=== PATIENT | female | born 1975 | race Caucasian/White ===

== ENCOUNTER 2024-10-15 11:36 | Inpatient (IN) ==
--- NOTE | 2024-10-15 11:56 | Emergency Department Note ---
Impression & Plan Intractable abdominal pain, Colitis, Intractable nausea and vomiting ED Provider Note NAME: JAYLON ISLAS AGE: 49 SEX: F : 1975 ARRIVES VIA: Ambulance INFORMANT: Patient ED PROVIDER(S): Malcolm Pruitt MD CHIEF COMPLAINT: Abdominal pain PLAN: Disposition: Admit MEDICAL DECISION MAKING: The patient is a pleasant 49-year-old woman with a past medical history of chronic abdominal pain who presents emergency department for evaluation of acute worsening of abdominal pain. The patient presents in the setting of ongoing chronic abdominal pain with fluctuant severity over the past year or more where she was seen in this emergency department on 07/21/2024 for similar symptoms and had CT imaging that demonstrated evidence of enteritis/colitis with possibility of inflammatory bowel disease. The patient has since followed with gastroenterology and had outpatient testing which included an elevated stool calprotectin of 1250. She was scheduled to have a colonoscopy today to further confirm her diagnosis and the patient reports that began to have severe abdominal pain and cramping after taking her second portion of her bowel prep today. On evaluation the patient is uncomfortable but no acute distress, afebrile with stable vital signs. She appears clinically dry. Abdomen is soft and nondistended with mild upper abdominal tenderness without guarding or rebound. WBC 12.5 K with neutrophilia but no left shift, nonspecific. H/H and platelets within normal limits. Comes without metabolic acidosis. Electrolytes LFTs without significant abnormality. Lipase is not elevated. ESR is mildly elevated at 30, nonspecific with CRP undetectable. CT of the pelvis was performed and demonstrates evidence of mild colitis and otherwise no acute abnormalities. Patient was treated with IV hydration, IV famotidine, Zofran and IM dicyclomine. On reassessment the patient was noted to be resting comfortably and was not exhibiting pain. However upon awakening the patient reported that she "felt sick" and had continued pain that is worse than her chronic pain over the past year. Given the patient's worsening symptoms in the setting of attempt at outpatient management patient agrees with plan for admission for further management at this time. Additional treatment provided with IV for hydration, Protonix, Carafate and Solu-Medrol. Case was discussed with Dr. Soares, [facility] hospitalist, who will evaluate the patient for admission. Further management per admitting team. Triage Nursing notes reviewed and agree them. Prior/external medical records reviewed Vital Signs: reviewed Differential diagnosis: Gastroenteritis, food borne illness, infections, appendicitis, diverticulitis, inflammatory bowel disease, obstruction, GI bleed, biliary pathology, volvulus, as well as other pathologies. ER treatment provided: See below. Diagnostics interpreted by me: Cardiac Monitoring: An order for continuous cardiac monitoring was placed and demonstrated normal sinus rhythm, 74bpm, no ectopy. Laboratory studies: See below Imaging studies: See below Consultation(s): Dr. Soares [facility] hospitalist HPI: Per MDM. ROS: See above HPI for pertinent positives & negatives. A total of 10 systems reviewed and were otherwise negative. VITALS:See Below PHYSICAL EXAMINATION: GENERAL: Awake, alert, uncomfortable-appearing, in no distress, BMI 20.3. HENT: Normocephalic, atraumatic. Oropharynx with dry mucous membranes and otherwise unremarkable. EYES: Normal conjunctiva. Sclera non-icteric. NECK: Supple. No nuchal rigidity. FROM. No JVD. RESPIRATORY: Clear to auscultation. CARDIAC: Regular rate, normal rhythm. Extremities warm and well perfused. Pulses equal. ABDOMEN: Soft, non-distended. Mild epigastric tenderness to palpation. No rebound or guarding. MUSCULOSKELETAL: Chest examination reveals no tenderness. The back is symmetrical on inspection without obvious abnormality. There is no CVA tenderness to palpation. No joint edema. LOWER EXTREMITIES: Calves are equal size bilaterally and non-tender. No edema. No discoloration. NEURO: Normal sensorium. No sensory or motor deficits noted. SKIN: No rash or jaundice noted. Malcolm Pruitt MD Past Med/Surg History Problem List (Updated 10/16/24 @ 02:18 by Malcolm Pruitt MD) Intractable abdominal pain (Acute) Colitis (Acute) Intractable nausea and vomiting (Acute) Encounter for pre-operative examination Enteritis Right ear pain Otitis externa of right ear Elevated LFTs Acute sinusitis Counseled about COVID-19 virus infection Encounter for smoking cessation counseling Non-healing skin lesion Routine health maintenance Left medial knee pain (Acute) Fracture of distal fibula (Acute) Medical History Post traumatic stress disorder Anxiety no meds Surgical History History of tooth extraction History of tubal ligation History of gynecologic surgery surgical treatment for Family History Mother Breast cancer Dx late 40's Other Dyslipidemia Heart disease Hypertension No family history of adverse response to anesthesia Social History Smoking Status: Current every day smoker Tobacco Type: Cigarettes Cigarettes Per Day: 5 cig daily>advised *wearing nicotine patch sometimes; Second Hand Exposure: Yes; Do You Dip or Chew Tobacco: No; Tobacco Cessation Education Requested by Patient: No Hx Alcohol Use: Yes Alcohol type: beer Hx Substance Use: No Preferred Language: Scottish Communication Ability: Effective Recovery Room Nurse Required: No Beliefs That Will Affect Care: None marital status: Single Current Living Situation: Alone Current Living Situation Comment: kids grown current occupational status: employed and unemployed 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 How many Children do You have: 3 How many Children do You have Comment: daughter has addiction issues (drugs) - stressful Other Information That Helps Us Care for You: No Feels Safe at Home: Yes Safety Concerns: Feels Safe At This Time Diet Comment: reg diet, rare milk, occ cheese and yogurt, Physical Activity Frequency Comment: walking, gardening. Assistive Devices: None Allergies Allergies Allergy/AdvReac Type Severity Reaction Status Date / Time No Known Allergies Allergy Verified 10/06/24 09:44 Home Meds Home Medications Medication Instructions Recorded Confirmed Vitamin D3 + K2 1 cap PO DAILY 10/06/24 10/15/24 magnesium glycinate 100 mg (as 200 mg PO HS 10/06/24 10/15/24 glycinate) tablet multivitamin 1 tab PO DAILY 10/06/24 10/15/24 nicotine 14 mg/24 hr daily 1 patch transdermal DAILY 10/06/24 10/15/24 transdermal patch Previous Rx's Medication Instructions Recorded peg 3350-sod [id number] See Rx Instructions PO .COMPLEX #2 09/27/24 178.7-7.3-0.5-1.12-0.9 gram oral mL soln (Suflave) Results & Data (ED) Vital Signs Vital Signs - 24 hr 10/15/24 11:37 10/15/24 11:49 10/15/24 11:54 Temperature 36.5 C Temperature Source Oral Pulse Rate 74 58 L 45 L Pulse Rate [Apical] Pulse Rate from SpO2 Sensor 45 L Pulse Rhythm Regular Pulse Rhythm [Apical] Pulse Strength Normal Pulse Strength [Apical] Respiratory Rate 18 14 Respiratory Effort / Characteristics Non-Labored Spontaneous Respiratory Depth Normal Respiratory Pattern Regular Blood Pressure 115/54 L 115/54 L Blood Pressure [Right Arm] Blood Pressure Mean 74 74 Blood Pressure Mean [Right Arm] Blood Pressure Position Lying Blood Pressure Position [Right Arm] Pulse Oximetry 100 100 Oxygen Delivery Method Room Air Room Air Sepsis Recent Fever Within 48 Hours No Sepsis New/Unexplained Change in Mental Status N/A Sepsis Action Taken by Nursing No Action Required EWS Level of Consciousness - Last Result EWS Temperature - Last Result EWS Respiratory Rate - Last Result EWS Oxygen Saturation - Last Result EWS Oxygen in Use - Last Result EWS Score EWS Clinical Risk 10/15/24 12:00 10/15/24 12:04 10/15/24 12:04 Temperature Temperature Source Pulse Rate 42 L Pulse Rate [Apical] 47 L Pulse Rate from SpO2 Sensor 41 L Pulse Rhythm Pulse Rhythm [Apical] Regular Pulse Strength Pulse Strength [Apical] Normal Respiratory Rate 24 16 Respiratory Effort / Characteristics Non-Labored Respiratory Depth Normal Respiratory Pattern Regular Blood Pressure 111/55 L Blood Pressure [Right Arm] 75/44 L Blood Pressure Mean 73 Blood Pressure Mean [Right Arm] 54 Blood Pressure Position Blood Pressure Position [Right Arm] Lying Pulse Oximetry 100 97 Oxygen Delivery Method Room Air Room Air Sepsis Recent Fever Within 48 Hours Sepsis New/Unexplained Change in Mental Status Sepsis Action Taken by Nursing EWS Level of Consciousness - Last Result Spontaneously Alert EWS Temperature - Last Result 36.5 EWS Respiratory Rate - Last Result 18 EWS Oxygen Saturation - Last Result 99 EWS Oxygen in Use - Last Result Yes EWS Score 4 EWS Clinical Risk Moderate Risk 10/15/24 12:30 10/15/24 14:18 10/15/24 15:00 Temperature Temperature Source Pulse Rate 42 L 45 L Pulse Rate [Apical] 45 L Pulse Rate from SpO2 Sensor 41 L Pulse Rhythm Pulse Rhythm [Apical] Pulse Strength Pulse Strength [Apical] Respiratory Rate 12 22 28 H Respiratory Effort / Characteristics Respiratory Depth Respiratory Pattern Blood Pressure 101/54 L 105/55 L Blood Pressure [Right Arm] 100/53 L Blood Pressure Mean 69 71 Blood Pressure Mean [Right Arm] 68 Blood Pressure Position Blood Pressure Position [Right Arm] Pulse Oximetry 100 Oxygen Delivery Method Room Air Sepsis Recent Fever Within 48 Hours Sepsis New/Unexplained Change in Mental Status Sepsis Action Taken by Nursing EWS Level of Consciousness - Last Result EWS Temperature - Last Result EWS Respiratory Rate - Last Result EWS Oxygen Saturation - Last Result EWS Oxygen in Use - Last Result EWS Score EWS Clinical Risk 10/15/24 17:00 10/15/24 17:10 Temperature Temperature Source Pulse Rate 42 L Pulse Rate [Apical] 40 L Pulse Rate from SpO2 Sensor Pulse Rhythm Pulse Rhythm [Apical] Pulse Strength Pulse Strength [Apical] Respiratory Rate 20 Respiratory Effort / Characteristics Respiratory Depth Respiratory Pattern Blood Pressure Blood Pressure [Right Arm] 102/49 L Blood Pressure Mean Blood Pressure Mean [Right Arm] 66 Blood Pressure Position Blood Pressure Position [Right Arm] Pulse Oximetry Oxygen Delivery Method Sepsis Recent Fever Within 48 Hours Sepsis New/Unexplained Change in Mental Status Sepsis Action Taken by Nursing EWS Level of Consciousness - Last Result EWS Temperature - Last Result EWS Respiratory Rate - Last Result EWS Oxygen Saturation - Last Result EWS Oxygen in Use - Last Result EWS Score EWS Clinical Risk Laboratory Data Attestation: I reviewed the patient's lab results. 10/15/24 17:59 10/15/24 22:49 Lab Results 10/15/24 Range/Units 11:51 WBC 12.52 H (4.8-10.8) K/ul RBC 4.50 (4.20-5.40) M/uL Hgb 13.3 (12.0-16.0) g/dl Hct 39.9 (37.0-47.0) % MCV 88.7 (80.0-100.0) fL MCH 29.6 (25.0-34.0) pg MCHC 33.3 (32.0-36.0) g/dL RDW Std Deviation 45.1 (36.4-46.3) fL RDW Coeff of Karl 14.0 (11.5-14.5) % Plt Count 273 (130-400) K/uL MPV 10.1 (9.4-12.4) fL Immature Gran % (Auto) 0.5 % Neut % (Auto) 86.4 % Lymph % (Auto) 8.0 % [place] % (Auto) 4.2 % Eos % (Auto) 0.4 % Baso % (Auto) 0.5 % Neut # (Auto) 10.83 H (1.40-6.50) K/uL Lymph # (Auto) 1.00 L (1.20-3.40) K/uL [place] # (Auto) 0.52 (0.11-0.59) K/uL Eos # (Auto) 0.05 (0.00-0.50) K/uL Baso # (Auto) 0.06 (0.00-0.20) K/uL Immature Gran # (Auto) 0.06 (0.01-0.20) K/uL ESR 31 H (0-30) mm/hr Sodium 141 (136-145) mmol/L Potassium 3.6 (3.5-5.1) mmol/L Chloride 103 (98-107) mmol/L Carbon Dioxide 23 (21-32) mmol/L Anion Gap 15 H (3-11) BUN 12 (6-23) mg/dl Creatinine 0.68 (0.6-1.2) mg/dl Est Cr Clr Drug Dosing 91.2 ml/min eGFR 105.38 BUN/Creatinine Ratio 17.6 (10-20) Glucose 144 H (70-99(Fasting)) mg/dl Calcium 10.3 (8.6-10.3) mg/dl Magnesium 1.9 (1.7-2.4) mg/dl Total Bilirubin 0.8 (0.2-1.0) mg/dl AST 21 (13-39) U/L ALT 15 (7-52) U/L Alkaline Phosphatase 55 (34-104) U/L C-Reactive Protein < 0.50 (0-0.5) mg/dl Total Protein 7.2 (6.0-8.3) gm/dl Albumin 4.5 (3.4-5.0) gm/dl Globulin 2.7 (2.5-4.0) gm/dl Albumin/Globulin Ratio 1.7 (0.9-2) Lipase 5 L (11-82) U/L Administered Medications Parenteral Electrolytes (Plasma-Lyte A Ph 7.4) 1,000 mls @ 150 mls/hr IV .Q6H40M [facility] Stop: 10/16/24 09:11 Last Infusion: 10/16/24 02:06 Dose: 0 mls/hr Documented By: Admin: 10/15/24 20:39 Dose: 150 mls/hr Documented By: NUBIA Sodium Chloride (Nss) 1,000 mls @ 999 mls/hr IV .Q1H1M ONE Stop: 10/16/24 02:52 Last Admin: 10/16/24 02:06 Dose: 999 mls/hr Documented By: NUBIA Nicotine (Nicotine 14 Mg/24 Hr Patch) 1 patch TD QAM NOEL Stop: 11/14/24 19:29 Last Admin: 10/15/24 20:37 Dose: 1 patch Documented By: NUBIA Discontinued Medications Capsaicin (Capsaicin Cr 0.075% 60 Gm Tube) 1 appln EXT NOW STA Stop: 10/15/24 16:56 Last Admin: 10/15/24 17:06 Dose: 1 appln Documented By: BERTIN Dicyclomine HCl (Dicyclomine Hcl 10 Mg/Ml 2 Ml Amp/Vial) 20 mg IM NOW ONE Stop: 10/15/24 13:02 Last Admin: 10/15/24 13:26 Dose: 20 mg Documented By: [facility] Diphenhydramine HCl (Diphenhydramine 50 Mg/Ml Vial) 25 mg IV NOW STA Stop: 10/16/24 00:06 Last Admin: 10/16/24 00:19 Dose: 25 mg Documented By: [facility] Sodium Chloride (Nss) 1,000 mls @ 999 mls/hr IV .Q1H1M ONE Stop: 10/15/24 13:02 Last Infusion: 10/15/24 16:25 Dose: Infused Documented By: Admin: 10/15/24 13:23 Dose: 999 mls/hr Documented By: [facility] [place] Famotidine (Pepcid 20mg Iv Push) 20 mg in 5 mls @ 2.5 mls/min IV NOW STA Stop: 10/15/24 13:02 Last Admin: 10/15/24 13:23 Dose: 2.5 mls/min Documented By: [facility] [place] Sodium Chloride (Nss) 1,000 mls @ 999 mls/hr IV .Q1H1M ONE Stop: 10/15/24 16:19 Last Infusion: 10/15/24 17:56 Dose: Infused Documented By: Admin: 10/15/24 16:47 Dose: 999 mls/hr Documented By: BERTIN Acetaminophen (Ofirmev) 1,000 mg in 100 mls @ 400 mls/hr IV NOW STA Stop: 10/15/24 15:40 Last Infusion: 10/15/24 16:49 Dose: Infused Documented By: Admin: 10/15/24 16:14 Dose: 400 mls/hr Documented By: VÍCTOR Pantoprazole Sodium (Protonix) 40 mg in 10 mls @ 5 mls/min IV NOW ONE Stop: 10/15/24 15:21 Last Admin: 10/15/24 16:14 Dose: 5 mls/min Documented By: VÍCTOR Parenteral Electrolytes (Plasma-Lyte A Ph 7.4) 1,000 mls @ 999 mls/hr IV .Q1H1M ONE Stop: 10/15/24 18:50 Last Infusion: 10/15/24 20:39 Dose: Infused Documented By: Admin: 10/15/24 17:55 Dose: 999 mls/hr Documented By: BERTIN Ioversol (Optiray 320 100ml) 93 ml IV ONCE ONE Stop: 10/15/24 13:16 Last Admin: 10/15/24 13:16 Dose: 93 ml Documented By: GINGER Methylprednisolone (Methylprednisolone 125 Mg/2 Ml Vial) 60 mg IV NOW STA Stop: 10/15/24 15:20 Last Admin: 10/15/24 16:14 Dose: 60 mg Documented By: VÍCTOR Metoclopramide HCl (Metoclopramide Hcl Inj 5 Mg/Ml 2 Ml Vial) 5 mg IV ONE ONE Stop: 10/15/24 17:22 Last Admin: 10/15/24 17:35 Dose: 5 mg Documented By: BERTIN Ondansetron HCl (Ondansetron Inj 2 Mg/Ml 2 Ml Vial) 4 mg IV NOW STA Stop: 10/15/24 13:02 Last Admin: 10/15/24 13:24 Dose: 4 mg Documented By: TRACEY Sucralfate (Sucralfate 1 Gm/10 Ml Udc) 1 gm PO NOW STA Stop: 10/15/24 15:20 Last Admin: 10/15/24 16:14 Dose: 1 gm Documented By: VÍCTOR Imaging Data Radiologist's Impression: Abdomen/Pelvis CT 10/15/24 13:[address] WITH IV CONTRAST CT DOSE: 770.8 mGy.cm HISTORY: abd pain after bowel prep, ?IBD TECHNIQUE: Multiaxial CT images of the abdomen and pelvis were performed following the IV administration of 90 cc of Optiray, A dose lowering technique was utilized adhering to the principles of ALARA. COMPARISON STUDY: 07/21/2024 FINDINGS: ABDOMEN: Stable tiny cyst anterior right hepatic lobe. Otherwise the liver, gallbladder, spleen, pancreas, and adrenal glands are unremarkable. Kidneys show no hydronephrosis or calculi. No abdominal aortic aneurysm. Pelvis: There are tubal ligation clips. Uterus and adnexa are otherwise grossly unremarkable. Urinary bladder is nondistended. There is mild wall thickening diffusely about the colon. No other bowel inflammation or obstruction seen. Normal appendix. No free fluid, free air, or abscess. No enlarged adenopathy. Osseous structures: There is mild lumbar degenerative disc disease. IMPRESSION: Mild colitis without obstruction or perforation. ACT 112: Negative or not required by law. The above report was generated using voice recognition software. It may contain grammatical, syntax or spelling errors. Electronically signed by: Arvin Tony M.D. 10/15/2024 1:41 PM Discharge Plan Visit Data Chief Complaint: Abdominal Pain ED Provider: Malcolm Pruitt Discharge Problem: Intractable abdominal pain, Colitis, Intractable nausea and vomiting Patient Disposition: Admitted As Inpatient Condition: Good Discharge Instructions Interventions: ED Discharge Assessment Last Done: 10/15/24 18:49
[2024-10-15 12:16] LABS: Basophils # (auto) 0.06 K/uL (0.00-0.20); Basophils % (auto) 0.5 %; Eosinophils # (auto) 0.05 K/uL (0.00-0.50); Eosinophils % (auto) 0.4 %; Hematocrit (blood only) 39.9 % (37.0-47.0); Hemoglobin 13.3 g/dl (12.0-16.0); Immature Granulocytes # (auto) 0.06 K/uL (0.01-0.20); Immature Granulocytes % (auto) 0.5 %; Mean Corpuscular Hemoglobin 29.6 pg (25.0-34.0); Mean Corpuscular Hgb Conc 33.3 g/dL (32.0-36.0); Mean Corpuscular Volume 88.7 fL (80.0-100.0); Mean Platelet Volume 10.1 fL (9.4-12.4); Monocytes # (auto) 0.52 K/uL (0.11-0.59); Monocytes % (auto) 4.2 %; Neutrophils # (auto) 10.83 K/uL (1.40-6.50); Neutrophils % (auto) 86.4 %; Platelet Count 273 K/uL (130-400); RDW Standard Deviation 45.1 fL (36.4-46.3); White Blood Count 12.52 K/ul (4.8-10.8)
[2024-10-15 12:45] LABS: Alanine Aminotransferase 15 U/L (7-52); Albumin Globulin Ratio 1.7 (0.9-2); Albumin Level 4.5 gm/dl (3.4-5.0); Alkaline Phosphatase 55 U/L (34-104); Anion Gap 15 (3-11); Aspartate Aminotransferase 21 U/L (13-39); BUN Creatinine Ratio 17.6 (10-20); Bilirubin,Total 0.8 mg/dl (0.2-1.0); Blood Urea Nitrogen 12 mg/dl (6-23); C Reactive Protein < 0.50 mg/dl (0-0.5); Calcium 10.3 mg/dl (8.6-10.3); Carbon Dioxide 23 mmol/L (21-32); Chloride 103 mmol/L (98-107); Creatinine Clr Calc Pharmacy 91.2 ml/min; Globulin 2.7 gm/dl (2.5-4.0); Glucose 144 mg/dl (70-99(Fasting)); Lipase 5 U/L (11-82); Magnesium 1.9 mg/dl (1.7-2.4); Potassium 3.6 mmol/L (3.5-5.1); Sodium 141 mmol/L (136-145); Total Protein 7.2 gm/dl (6.0-8.3)
--- NOTE | 2024-10-15 13:42 | CT Scan Report ---
ABDOMEN AND PELVIS CT WITH IV CONTRAST CT DOSE: 770.8 mGy.cm HISTORY: abd pain after bowel prep, ?IBD TECHNIQUE: Multiaxial CT images of the abdomen and pelvis were performed following the IV administrat ion of 90 cc of Optiray, A dose lowering technique was utilized adhering to the principles of ALARA. COMPARISON STUDY: 07/21/2024 FINDINGS: ABDOMEN: Stable tiny cyst anterior right hepatic lobe. Otherwise the liver, gallbladder, spleen, panc reas, and adrenal glands are unremarkable. Kidneys show no hydronephrosis or calculi. No abdominal ao rtic aneurysm. Pelvis: There are tubal ligation clips. Uterus and adnexa are otherwise grossly unremarkable. Urinary bladder is nondistended. There is mild wall thickening diffusely about the colon. No other bowel inf lammation or obstruction seen. Normal appendix. No free fluid, free air, or abscess. No enlarged danny opathy. Osseous structures: There is mild lumbar degenerative disc disease. IMPRESSION: Mild colitis without obstruction or perforation. ACT 112: Negative or not required by law. The above report was generated using voice recognition software. It may contain grammatical, syntax o r spelling errors. Electronically signed by: Arvin Tony M.D. 10/15/2024 1:41 PM
--- NOTE | 2024-10-15 16:33 | History & Physical Report ---
Date of Service October 15, 2024 Assessment & Plan (1) Intractable nausea and vomiting: (2) Colitis: (3) Hypovolemic shock: (4) Bradycardia: Plan This is a 49-year-old female presented on 10/15 for intractable upper abdominal pain. Coming in for pain control and colitis. # Intractable abdominal pain, nausea, and vomiting | suspected IBD/inflammatory colitis Leukocytosis of 12.52 with a neutrophil predominance A/P CT with contrast revealed mild colitis without obstruction or perforation Patient previously had a fecal calprotectin positive (09/20/24) and was set to have a colonoscopy today on 10/15 However, she did not tolerate the bowel prep, began vomiting, and this exacerbated her abdominal symptoms PCR stool/C. difficile ordered, pending CRP WNL Lipase WNL Multimodal pain regimen: IM Bentyl 20 mg x 1 IV Solu-Medrol 60 mg IV x 1 IV Reglan 5 mg IV x 1 IV acetaminophen PRN IV Protonix daily IV famotidine daily IV antiemetics with Zofran and Compazine PRN; QTc okay at 459 Capsaicin cream application PRN Bowel rest / n.p.o. for now NSS 2000 mL IV x 1 on arrival Additional fluid boluses as needed for significant volume loss Continue IVF maintenance with Plasma-Lyte at 110 mL/hr x 2 L (add on additional fluids as needed) Gastroenterology consult appreciated Trend CRP #Marked sinus bradycardia Bradycardic at 42-45 bpm on arrival Continuous telemetry monitoring #Current everyday tobacco cigarette smoker Nicotine patch PRN #Hematochezia | coffee-ground emesis Reported by patient on arrival Hgb okay at 13.3 on arrival Spotcheck Hgb ordered, pending Protonix 40 mg IV BID for now Trend H&H Disposition: Admit to [facility] telemetry VTE PPx: SCDs History of Present Illness Chief Complaint: Abdominal Pain, intractable nausea and vomiting Primary Care Provider: Leslee Vazquez MD Mrs. Crews is a 49-year-old female with PMH of enteritis. She presented via EMS on 10/15 for intractable nausea, vomiting, and upper abdominal pain. She has been experiencing ongoing bowel issues over the past 2 years. She recently had a fecal calprotectin test taken outpatient on 09/20, which came back positive. She was scheduled to have a colonoscopy today, and was finishing her bowel prep around 5 AM this morning, when she started vomiting. She believes the bowel prep exacerbated her pain, and since that time she has had a constant upper abdominal pain. She rates the pain 10/10 at worst, and 8/10 at present; ch aracterizes it as "sharp". She has had an back pain in the past, but no radiation to the back at present. The pain is constant, but there are waves of intense pain as well. Additionally, she has been having "coffee ground" emesis. Additional symptoms include blood in her stool and cold sweats. No prior history of Crohn's or ulcerative colitis to her knowledge. Patient is a current everyday tobacco cigarette smoker; 10 cigarettes/day. She would like a nicotine patch while in the hospital. She denies any recent alcohol use, but does endorse drinking some beer last weekend. NKDA. Patient is hypotensive at 105/55 and bradycardic at 45 bpm at time of admission. ED course: Protonix 40 mg IV Famotidine 20 mg IV Bentyl 20 mg IM Acetaminophen 1000 mg IV Sucralfate 1 g p.o. Solu-Medrol 60 mg IV NSS 1000 mL IV x 2 Zofran 4 mg IV ROS: Patient endorses intractable epigastric/chest pain, body aches, back pain, nausea, vomiting, constipation, blood in stool, and cold sweats. Patient denies fever, chills, SOB, BEY, pleuritic CP, cough, or change in urinary habits. Allergies Allergy/AdvReac Type Severity Reaction Status Date / Time No Known Allergies Allergy Verified 10/06/24 09:44 Home Medications Medication Instructions Recorded Confirmed Type peg 3350-sod [id number] See Rx Instructions PO .COMPLEX #2 09/27/24 10/15/24 Rx 178.7-7.3-0.5-1.12-0.9 gram oral mL soln (Suflave) Vitamin D3 + K2 1 cap PO DAILY 10/06/24 10/15/24 History magnesium glycinate 100 mg (as 200 mg PO HS 10/06/24 10/15/24 History glycinate) tablet multivitamin 1 tab PO DAILY 10/06/24 10/15/24 History nicotine 14 mg/24 hr daily 1 patch transdermal DAILY 10/06/24 10/15/24 History transdermal patch Past Med/Surg History Problem List (Updated 10/17/24 @ 09:28 by Eran Soares MD) Bradycardia Hypovolemic shock Intractable abdominal pain (Acute) Colitis (Acute) Intractable nausea and vomiting (Acute) Encounter for pre-operative examination Enteritis Right ear pain Otitis externa of right ear Elevated LFTs Acute sinusitis Counseled about COVID-19 virus infection Encounter for smoking cessation counseling Non-healing skin lesion Routine health maintenance Left medial knee pain (Acute) Fracture of distal fibula (Acute) Medical History Post traumatic stress disorder Anxiety no meds Surgical History History of tooth extraction History of tubal ligation History of gynecologic surgery surgical treatment for Family History Mother Breast cancer Dx late 40's Other Dyslipidemia Heart disease Hypertension No family history of adverse response to anesthesia Social History Smoking Status: Current every day smoker Tobacco Type: Cigarettes Cigarettes Per Day: 5 cig daily>advised *wearing nicotine patch sometimes; Second Hand Exposure: Yes; Do You Dip or Chew Tobacco: No; Tobacco Cessation Education Requested by Patient: No Hx Alcohol Use: Yes Alcohol type: beer Hx Substance Use: No Preferred Language: Hungarian Communication Ability: Effective Supervising Floorperson Required: No Beliefs That Will Affect Care: None marital status: Single Current Living Situation: Alone Current Living Situation Comment: kids grown current occupational status: employed and unemployed 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 How many Children do You have: 3 How many Children do You have Comment: daughter has addiction issues (drugs) - stressful Other Information That Helps Us Care for You: No Feels Safe at Home: Yes Safety Concerns: Feels Safe At This Time Diet Comment: reg diet, rare milk, occ cheese and yogurt, Physical Activity Frequency Comment: walking, gardening. Assistive Devices: None Review of Systems Review of Systems: See HPI above Physical Exam Physical Exam: General: Acute physical distress secondary to upper abdominal pain; vomiting in the room; toxic appearing; family at bedside; SpO2 100% on RA HEENT: normocephalic, atraumatic; no scleral icterus; PERRLA; vision and hearing grossly intact Neck: supple; trachea midline Skin: Non-diaphoretic; warm, dry without signs of tenting; no cyanosis; no rashes, bruising, lesions, or erythema noted CV: chest wall NTP; RRR; S1/S2 normal; no murmurs/rubs/gallops; pulses intact and symmetric at radial, DP, and PT Lungs: no acute respiratory distress; symmetrical chest wall expansion; clear breath sounds across all lung preston w/o adventitious sounds; no wheezing ABD: Soft; diffusely TTP in the epigastric region; BS present; no reboun d/guarding; no bruising or rashes on the abdomen, flanks, or back Back: Upper spine NTP; lower spine NTP; negative CVA tenderness bilaterally MSK: no tics or fasciculations; no edema noted in the LEs b/l, nonerythematous Neuro: A&Ox3; normal mood and affect; fluent speech; no focal deficits; sensation intact and symmetric in the lower extremities bilaterally Results & Data Results & Data Vital Signs (Past 12 Hours) Vital Signs Temp Pulse Resp BP Pulse Ox O2 Del Method 10/15/24 14:18 45 L 22 105/55 L 10/15/24 12:30 42 L 12 101/54 L 100 Room Air 10/15/24 12:00 42 L 24 111/55 L 100 Room Air 10/15/24 11:54 45 L 14 115/54 L 100 Room Air 10/15/24 11:49 58 L 10/15/24 11:37 36.5 C 74 18 115/54 L 100 Room Air Laboratory Results Abnormal lab results 10/15/24 Range/Units 11:51 WBC 12.52 H (4.8-10.8) K/ul Neut # (Auto) 10.83 H (1.40-6.50) K/uL Lymph # (Auto) 1.00 L (1.20-3.40) K/uL ESR 31 H (0-30) mm/hr Anion Gap 15 H (3-11) Glucose 144 H (70-99(Fasting)) mg/dl Lipase 5 L (11-82) U/L Diagnostic Findings Abdomen/Pelvis CT 10/15/24 13:[address] WITH IV CONTRAST CT DOSE: 770.8 mGy.cm HISTORY: abd pain after bowel prep, ?IBD TECHNIQUE: Multiaxial CT images of the abdomen and pelvis were performed following the IV administration of 90 cc of Optiray, A dose lowering technique was utilized adhering to the principles of ALARA. COMPARISON STUDY: 07/21/2024 FINDINGS: ABDOMEN: Stable tiny cyst anterior right hepatic lobe. Otherwise the liver, gallbladder, spleen, pancreas, and adrenal glands are unremarkable. Kidneys show no hydronephrosis or calculi. No abdominal aortic aneurysm. Pelvis: There are tubal ligation clips. Uterus and adnexa are otherwise grossly unremarkable. Urinary bladder is nondistended. There is mild wall thickening diffusely about the colon. No other bowel inflammation or obstruction seen. Normal appendix. No free fluid, free air, or abscess. No enlarged adenopathy. Osseous structures: There is mild lumbar degenerative disc disease. IMPRESSION: Mild colitis without obstruction or perforation. ACT 112: Negative or not required by law. The above report was generated using voice recognition software. It may contain grammatical, syntax or spelling errors. Electronically signed by: Arvin Tony M.D. 10/15/2024 1:41 PM ECG Additional Comments: ECG revealed marked sinus bradycardia at 44 bpm; QTc 459 Code Status & VTE Plan Code Status Full code VTE Prophylaxis Plan VTE Prophylaxis will be ordered: Yes Supervising Physician Co-Signing Physician Notes Attending Attestation & Admit Note: Pt seen/examined, chart reviewed, care plan d/w MIRIAM Lewis. I agree w/ the cameron components of his admit documentation with the following addition - -hypovolemic shock 2nd to prolific vomiting and multiple stools from bowel prep 49yo female with chronic, multiple GI complaints and 06/2024 imaging with diffuse colitis. Prior stool calprotectin also elevated. Concern for IBD. Underwent colon prep starting yesterday - completed 05/27 as directed. This AM was starting 2nd half then developed profuse nausea/vomiting/abd pain. Came to [facility] due to refractory GI symptoms. Shortly after arrival BP was 75/44. Received numerous meds in ER (as listed in Joshua's note) for her nausea/vomiting/abd pain. Despite the above her symptoms persisted. Her hypotension also persisted necessitating the use of multiple IV fluid boluses. Patient states she had no wheezing, angioedema, tongue swelling, hives. PMH/PSH/allergies/meds/sochx - reviewed vitals - hypotension, bradycardia (etiology?), no fever gen - tired-appearing, awake, alert mouth - MM dry heart - bradycardic, s1 s2, no murmur lungs - CTA b/l abd - soft, ND, BS+, tender epigastric region, no HSM ext - despite the low BP she has palpable pulses in feet b/l, 2+; no edema labs reviewed imaging reviewed including CT a/p (possible mild colitis) EKG - sinus tesha, no ST changes, no AV block A/P: 1. concern for IBD 2. hypovolemic shock 3. intractable nausea/vomiting/abd pain in setting of colon prep 4. bradycardia -cont IV fluid resuscitation for #2 -check a cortisol level -serial electrolytes -NPO for now until emesis stops -H2 darin/PPI/anti-emetics -GI consult -etiology of bradycardia uncertain; vagal response to GI symptoms??; bradycardia NOT c/w anaphylaxis to colon prep material; check TSH; check Lyme screen -consider echo if bradycardia persists Eran Soares MD PG Care Time/CCT Total # of Minutes Spent Total Time Spent with Patient: Total time spent is greater than 50% in coordination of care (as documented) at patient's floor/unit and/or counseling patient: [place] [address] INT INP/OBS CARE 3/75MIN Patient Type Established Medical Decision Making High Complexity Diagnoses Intractable nausea and vomiting R11.2 Colitis K52.9 Hypovolemic shock R57.1 Bradycardia R00.1
[2024-10-15 18:18] LABS: Hematocrit (blood only) 30.4 % (37.0-47.0); Hemoglobin 9.9 g/dl (12.0-16.0)
[2024-10-15 23:23] LABS: Calcium 8.8 mg/dl (8.6-10.3); Creatinine Clr Calc Pharmacy 119.7 ml/min; Potassium 3.7 mmol/L (3.5-5.1)
[2024-10-16 03:59] LABS: Hematocrit (blood only) 32.3 % (37.0-47.0); Hemoglobin 10.5 g/dl (12.0-16.0)
[2024-10-16 04:00] LABS: Basophils # (auto) 0.01 K/uL (0.00-0.20); Basophils % (auto) 0.1 %; Eosinophils # (auto) 0.01 K/uL (0.00-0.50); Eosinophils % (auto) 0.1 %; Hematocrit (blood only) 31.7 % (37.0-47.0); Hemoglobin 10.2 g/dl (12.0-16.0); Immature Granulocytes # (auto) 0.02 K/uL (0.01-0.20); Immature Granulocytes % (auto) 0.3 %; Lymphocytes # (auto) 1.11 K/uL (1.20-3.40); Lymphocytes % (auto) 16.1 %; Mean Corpuscular Hemoglobin 29.6 pg (25.0-34.0); Mean Corpuscular Hgb Conc 32.2 g/dL (32.0-36.0); Mean Corpuscular Volume 91.9 fL (80.0-100.0); Mean Platelet Volume 10.1 fL (9.4-12.4); Monocytes # (auto) 0.37 K/uL (0.11-0.59); Monocytes % (auto) 5.4 %; Neutrophils # (auto) 5.36 K/uL (1.40-6.50); Platelet Count 223 K/uL (130-400); RDW Coefficient of Variation 14.5 % (11.5-14.5); RDW Standard Deviation 48.9 fL (36.4-46.3); Red Blood Count 3.45 M/uL (4.20-5.40); White Blood Count 6.88 K/ul (4.8-10.8)
[2024-10-16 04:15] LABS: Anion Gap 8 (3-11); BUN Creatinine Ratio 15.7 (10-20); Blood Urea Nitrogen 8 mg/dl (6-23); C Reactive Protein < 0.50 mg/dl (0-0.5); Calcium 8.4 mg/dl (8.6-10.3); Carbon Dioxide 22 mmol/L (21-32); Chloride 111 mmol/L (98-107); Creatinine Clr Calc Pharmacy 124.4 ml/min; Glucose 109 mg/dl (70-99(Fasting)); Magnesium 1.9 mg/dl (1.7-2.4); Potassium 3.5 mmol/L (3.5-5.1); Sodium 141 mmol/L (136-145)
[2024-10-16 04:31] LABS: Thyroid Stimulating Hormone 0.333 uIu/ml (0.300-4.500)
[2024-10-16 07:29] LABS: Appearance Urine Clear (Clear); Color Urine Yellow; Protein Urine Trace (Negative); Specific Gravity Urine 1.041 (1.000-1.030); pH Urine 5.5 (4.5-7.5)
[2024-10-16 07:30] LABS: Bacteria Urine Automated 1+ (None Seen); Bilirubin Urine Negative (Negative); Blood Urine Negative (Negative); Cast Urine Automated 0-2 /lpf (0-2); Glucose Urine UA Negative (Negative); Ketones Urine 2+ (Negative); Leukocyte Esterase Urine Negative (Negative); Nitrite Urine Negative (Negative); RBC Urine Automated 0-2 /hpf (0-2); Urobilinogen Urine Negative (Negative)
[2024-10-16 07:48] LABS: Pregnancy Test, Urine Negative (Negative)
[2024-10-16 07:53] LABS: Amphetamines+Metham, Urine Neg (Neg); Barbiturates, Urine Neg (Neg); Benzodiazepine, Urine Neg (Neg); Cocaine, Urine Neg (Neg); Fentanyl, Urine Neg (Neg); MDMA (Ecstacy), Urine Neg (Neg); Marijuana, Urine Pos (Neg); Methadone, Urine Neg (Neg); Opiate, Urine Neg (Neg); Phencyclidine, Urine Neg (Neg)
--- NOTE | 2024-10-16 11:15 | Gastrointestinal Consultation ---
Date of Consultation October 16, 2024 Assessment & Plan (1) Intractable abdominal pain: Pleasant woman with significant abdominal pain that started while taking prep for colonoscopy to evaluate for colitis on CT with elevated fecal calprotectin. Interesting her c-reactive protein here is normal. She had a pretty violent reaction and the numbness and inability to use her extremities is somewhat concerning. I suppose she could have had a vagal reaction and that is why she had distal numbness and tingling. It does seem likely that she has IBD but CT does not suggest any inflammation in an area where she could have partial obstruction. She does need evaluation with colonoscopy but she isn't ready to try the prep again yet. I will let her recover today and revisit the idea tomorrow. I would maintain her on liquids for now to make prep easier. I did offer the idea of going home and scheduling this as an outpatient but she isn't comfortable doing the prep without someone present. History of Present Illness Reason for Consultation: abdominal pain Attending Physician: Eran Soares MD History of Present Illness 49 year old female being evaluated as an outpatient for abdominal pain and "colitis on CT". She had a fecal calprotectin >1000 on recent outpatient testing and was scheduled for colonoscopy yesterday. She underwent prep for procedure and while doing the second dose or prep developed "severe" abdominal pain and said her extremities became "numb". She reports not being able to use her extremities to call anybody. She says she was writhing on the bed yelling she was in so much pain. She came to the ER and had to forego the colonoscopic evaluation. She was initially diagnosed with "colits" on CT earlier this year and had seen someone at an urgent care center who put her on prednisone. Off prednisone she says she has been developing symptoms more recently. She admits to probably a 25 pound weight loss. Allergies Allergy/AdvReac Type Severity Reaction Status Date / Time No Known Allergies Allergy Verified 10/06/24 09:44 Home Medications Medication Instructions Recorded Confirmed Type peg 3350-sod sulf,[id number] See Rx Instructions PO .COMPLEX #2 09/27/24 10/15/24 Rx 178.7-7.3-0.5-1.12-0.9 gram oral mL soln (Suflave) Vitamin D3 + K2 1 cap PO DAILY 10/06/24 10/15/24 History magnesium glycinate 100 mg (as 200 mg PO HS 10/06/24 10/15/24 History glycinate) tablet multivitamin 1 tab PO DAILY 10/06/24 10/15/24 History nicotine 14 mg/24 hr daily 1 patch transdermal DAILY 10/06/24 10/15/24 History transdermal patch Patient History Medical History Post traumatic stress disorder Anxiety no meds Surgical History History of tooth extraction History of tubal ligation History of gynecologic surgery surgical treatment for Family History Mother Breast cancer Dx late 40's Other Dyslipidemia Heart disease Hypertension No family history of adverse response to anesthesia Social History Smoking Status: Current every day smoker Tobacco Type: Cigarettes Cigarettes Per Day: 5 cig daily>advised *wearing nicotine patch sometimes; Second Hand Exposure: Yes; Do You Dip or Chew Tobacco: No; Tobacco Cessation Education Requested by Patient: No Hx Alcohol Use: Yes Alcohol type: beer Hx Substance Use: No Preferred Language: Australian Communication Ability: Effective Application Internship Required: No Beliefs That Will Affect Care: None marital status: Single Current Living Situation: Alone Current Living Situation Comment: kids grown current occupational status: employed and unemployed 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 How many Children do You have: 3 How many Children do You have Comment: daughter has addiction issues (drugs) - stressful Other Information That Helps Us Care for You: No Feels Safe at Home: Yes Safety Concerns: Feels Safe At This Time Diet Comment: reg diet, rare milk, occ cheese and yogurt, Physical Activity Frequency Comment: walking, gardening. Assistive Devices: None Review of Systems Review of Systems: All systems reviewed & are unremarkable except as noted in HPI & below Physical Exam Physical Exam: Pleasant, looks well Constitutional: WD/WN, vitals as above Neck: trachea midline, no thyromegaly Respiratory: normal respiratory effort, lungs clear to auscultation Cardiovascular: RRR, no murmur, no edema Gastrointestinal (Abdomen): normal bowel sounds, soft, nontender, no hepatosplenomegaly Musculoskeletal: Extremities: extremities normal to inspection Results & Data Vital Signs (Past 12 Hours) Vital Signs Temp Pulse Resp BP BP Pulse Ox O2 Del Method 10/16/24 07:27 36.9 C 42 L 18 113/69 99 Room Air 10/16/24 04:36 91/54 L 10/16/24 03:42 79/45 L 83/49 L 10/16/24 03:10 92/46 L 10/16/24 02:37 37.0 C 46 L 18 78/46 L 96 Room Air 10/16/24 02:31 55 L 16 94/60 L 96 Room Air 10/16/24 01:47 52 L 16 87/40 L 97 Room Air 10/16/24 00:55 57 L 85/41 L 10/15/24 23:56 57 L 16 87/54 L 97 Laboratory Results 10/16/24 10/16/24 10/16/24 Range/Units 07:16 07:10 03:25 WBC (4.8-10.8) K/ul RBC (4.20-5.40) M/uL Hgb (12.0-16.0) g/dl Hct 32.3 L (37.0-47.0) % MCV 91.9 (80.0-100.0) fL MCH 29.6 (25.0-34.0) pg MCHC 32.2 (32.0-36.0) g/dL RDW Std Deviation 48.9 H (36.4-46.3) fL RDW Coeff of Karl 14.5 (11.5-14.5) % Plt Count 223 (130-400) K/uL MPV 10.1 (9.4-12.4) fL Immature Gran % (Auto) 0.3 % Neut % (Auto) 78.0 % Lymph % (Auto) 16.1 % Bonner % (Auto) 5.4 % Eos % (Auto) 0.1 % Baso % (Auto) 0.1 % Neut # (Auto) 5.36 (1.40-6.50) K/uL Lymph # (Auto) 1.11 L (1.20-3.40) K/uL Bonner # (Auto) 0.37 (0.11-0.59) K/uL Eos # (Auto) 0.01 (0.00-0.50) K/uL Baso # (Auto) 0.01 (0.00-0.20) K/uL Immature Gran # (Auto) 0.02 (0.01-0.20) K/uL ESR (0-30) mm/hr Sodium 141 (136-145) mmol/L Potassium 3.5 (3.5-5.1) mmol/L Chloride 111 H (98-107) mmol/L Carbon Dioxide 22 (21-32) mmol/L Anion Gap 8 (3-11) BUN 8 (6-23) mg/dl Creatinine 0.51 L (0.6-1.2) mg/dl Est Cr Clr Drug Dosing 124.4 ml/min eGFR 112.94 BUN/Creatinine Ratio 15.7 (10-20) Glucose 109 H (70-99(Fasting)) mg/dl Lactate 1.0 (0.4-2.0) mmol/L Calcium 8.4 L (8.6-10.3) mg/dl Magnesium 1.9 (1.7-2.4) mg/dl Total Bilirubin (0.2-1.0) mg/dl AST (13-39) U/L ALT (7-52) U/L Alkaline Phosphatase (34-104) U/L Troponin I High Sens (0-14) pg/ml C-Reactive Protein < 0.50 (0-0.5) mg/dl Total Protein (6.0-8.3) gm/dl Albumin (3.4-5.0) gm/dl Globulin (2.5-4.0) gm/dl Albumin/Globulin Ratio (0.9-2) Lipase (11-82) U/L TSH 0.333 (0.300-4.500) uIu/ml Random Cortisol mcg/dl Urine Color Yellow Urine Appearance Clear (Clear) Urine pH 5.5 (4.5-7.5) Ur Specific Continental 1.041 H (1.000-1.030) Urine Protein Trace H (Negative) Urine Glucose (UA) Negative (Negative) Urine Ketones 2+ H (Negative) Urine Blood Negative (Negative) Urine Nitrite Negative (Negative) Urine Bilirubin Negative (Negative) Urine Urobilinogen Negative (Negative) Ur Leukocyte Esterase Negative (Negative) Urine WBC (Auto) 6-10 H (0-5) /hpf Urine RBC (Auto) 0-2 (0-2) /hpf U Hyaline Cast (Auto) 0-2 (0-2) /lpf U Epithel Cells (Auto) 3-5 H (0-2) /hpf Urine Bacteria (Auto) 1+ H (None Seen) Urine Test Negative (Negative) Urine Comment Urine Opiates Screen Neg (Neg) Ur Methadone, Qual Neg (Neg) Urine Fentanyl Screen Neg (Neg) Urine Barbiturates Neg (Neg) Ur Phencyclidine (PCP) Neg (Neg) U Amphetamin/Meth Scrn Neg (Neg) MDMA (Ecstasy) Screen Neg (Neg) U Benzodiazepines Scrn Neg (Neg) Ur Cocaine Metabolite Neg (Neg) U Marijuana (THC) Screen Pos H (Neg) U Marijuana THC Carboxy Pending Drug Screen Comment Pending Lyme Disease Screen (Negative) 10/16/24 10/16/24 10/15/24 Range/Units 03:25 03:25 22:49 WBC 6.88 (4.8-10.8) K/ul RBC 3.45 L (4.20-5.40) M/uL Hgb 10.5 L 10.2 L (12.0-16.0) g/dl Hct 31.7 L (37.0-47.0) % MCV (80.0-100.0) fL MCH (25.0-34.0) pg MCHC (32.0-36.0) g/dL RDW Std Deviation (36.4-46.3) fL RDW Coeff of Karl (11.5-14.5) % Plt Count (130-400) K/uL MPV (9.4-12.4) fL Immature Gran % (Auto) % Neut % (Auto) % Lymph % (Auto) % Bonner % (Auto) % Eos % (Auto) % Baso % (Auto) % Neut # (Auto) (1.40-6.50) K/uL Lymph # (Auto) (1.20-3.40) K/uL Bonner # (Auto) (0.11-0.59) K/uL Eos # (Auto) (0.00-0.50) K/uL Baso # (Auto) (0.00-0.20) K/uL Immature Gran # (Auto) (0.01-0.20) K/uL ESR (0-30) mm/hr Sodium 140 (136-145) mmol/L Potassium 3.7 (3.5-5.1) mmol/L Chloride 108 H (98-107) mmol/L Carbon Dioxide 24 (21-32) mmol/L Anion Gap 8 (3-11) BUN 9 (6-23) mg/dl Creatinine 0.53 L (0.6-1.2) mg/dl Est Cr Clr Drug Dosing 119.7 ml/min eGFR 111.90 BUN/Creatinine Ratio 17.0 (10-20) Glucose 128 H (70-99(Fasting)) mg/dl Lactate 0.9 (0.4-2.0) mmol/L Calcium 8.8 (8.6-10.3) mg/dl Magnesium (1.7-2.4) mg/dl Total Bilirubin (0.2-1.0) mg/dl AST (13-39) U/L ALT (7-52) U/L Alkaline Phosphatase (34-104) U/L Troponin I High Sens (0-14) pg/ml C-Reactive Protein (0-0.5) mg/dl Total Protein (6.0-8.3) gm/dl Albumin (3.4-5.0) gm/dl Globulin (2.5-4.0) gm/dl Albumin/Globulin Ratio (0.9-2) Lipase (11-82) U/L TSH (0.300-4.500) uIu/ml Random Cortisol 16.70 mcg/dl Urine Color Urine Appearance (Clear) Urine pH (4.5-7.5) Ur Specific Continental (1.000-1.030) Urine Protein (Negative) Urine Glucose (UA) (Negative) Urine Ketones (Negative) Urine Blood (Negative) Urine Nitrite (Negative) Urine Bilirubin (Negative) Urine Urobilinogen (Negative) Ur Leukocyte Esterase (Negative) Urine WBC (Auto) (0-5) /hpf Urine RBC (Auto) (0-2) /hpf U Hyaline Cast (Auto) (0-2) /lpf U Epithel Cells (Auto) (0-2) /hpf Urine Bacteria (Auto) (None Seen) Urine Test (Negative) Urine Comment Urine Opiates Screen (Neg) Ur Methadone, Qual (Neg) Urine Fentanyl Screen (Neg) Urine Barbiturates (Neg) Ur Phencyclidine (PCP) (Neg) U Amphetamin/Meth Scrn (Neg) MDMA (Ecstasy) Screen (Neg) U Benzodiazepines Scrn (Neg) Ur Cocaine Metabolite (Neg) U Marijuana (THC) Screen (Neg) U Marijuana THC Carboxy Drug Screen Comment Lyme Disease Screen Negative (Negative) 10/15/24 10/15/24 10/15/24 Range/Units 17:59 17:43 11:51 WBC 12.52 H (4.8-10.8) K/ul RBC 4.50 (4.20-5.40) M/uL Hgb 9.9 L D 13.3 (12.0-16.0) g/dl Hct 30.4 L 39.9 (37.0-47.0) % MCV 88.7 (80.0-100.0) fL MCH 29.6 (25.0-34.0) pg MCHC 33.3 (32.0-36.0) g/dL RDW Std Deviation 45.1 (36.4-46.3) fL RDW Coeff of Karl 14.0 (11.5-14.5) % Plt Count 273 (130-400) K/uL MPV 10.1 (9.4-12.4) fL Immature Gran % (Auto) 0.5 % Neut % (Auto) 86.4 % Lymph % (Auto) 8.0 % Bonner % (Auto) 4.2 % Eos % (Auto) 0.4 % Baso % (Auto) 0.5 % Neut # (Auto) 10.83 H (1.40-6.50) K/uL Lymph # (Auto) 1.00 L (1.20-3.40) K/uL Bonner # (Auto) 0.52 (0.11-0.59) K/uL Eos # (Auto) 0.05 (0.00-0.50) K/uL Baso # (Auto) 0.06 (0.00-0.20) K/uL Immature Gran # (Auto) 0.06 (0.01-0.20) K/uL ESR 31 H (0-30) mm/hr Sodium 141 (136-145) mmol/L Potassium 3.6 (3.5-5.1) mmol/L Chloride 103 (98-107) mmol/L Carbon Dioxide 23 (21-32) mmol/L Anion Gap 15 H (3-11) BUN 12 (6-23) mg/dl Creatinine 0.68 (0.6-1.2) mg/dl Est Cr Clr Drug Dosing 91.2 ml/min eGFR 105.38 BUN/Creatinine Ratio 17.6 (10-20) Glucose 144 H (70-99(Fasting)) mg/dl Lactate (0.4-2.0) mmol/L Calcium 10.3 (8.6-10.3) mg/dl Magnesium 1.9 (1.7-2.4) mg/dl Total Bilirubin 0.8 (0.2-1.0) mg/dl AST 21 (13-39) U/L ALT 15 (7-52) U/L Alkaline Phosphatase 55 (34-104) U/L Troponin I High Sens 2.7 (0-14) pg/ml C-Reactive Protein < 0.50 (0-0.5) mg/dl Total Protein 7.2 (6.0-8.3) gm/dl Albumin 4.5 (3.4-5.0) gm/dl Globulin 2.7 (2.5-4.0) gm/dl Albumin/Globulin Ratio 1.7 (0.9-2) Lipase 5 L (11-82) U/L TSH (0.300-4.500) uIu/ml Random Cortisol mcg/dl Urine Color Urine Appearance (Clear) Urine pH (4.5-7.5) Ur Specific Continental (1.000-1.030) Urine Protein (Negative) Urine Glucose (UA) (Negative) Urine Ketones (Negative) Urine Blood (Negative) Urine Nitrite (Negative) Urine Bilirubin (Negative) Urine Urobilinogen (Negative) Ur Leukocyte Esterase (Negative) Urine WBC (Auto) (0-5) /hpf Urine RBC (Auto) (0-2) /hpf U Hyaline Cast (Auto) (0-2) /lpf U Epithel Cells (Auto) (0-2) /hpf Urine Bacteria (Auto) (None Seen) Urine Test (Negative) Urine Comment Urine Opiates Screen (Neg) Ur Methadone, Qual (Neg) Urine Fentanyl Screen (Neg) Urine Barbiturates (Neg) Ur Phencyclidine (PCP) (Neg) U Amphetamin/Meth Scrn (Neg) MDMA (Ecstasy) Screen (Neg) U Benzodiazepines Scrn (Neg) Ur Cocaine Metabolite (Neg) U Marijuana (THC) Screen (Neg) U Marijuana THC Carboxy Drug Screen Comment Lyme Disease Screen (Negative) Diagnostic Findings Abdomen/Pelvis CT 10/15/24 13:[address] WITH IV CONTRAST CT DOSE: 770.8 mGy.cm HISTORY: abd pain after bowel prep, ?IBD TECHNIQUE: Multiaxial CT images of the abdomen and pelvis were performed following the IV administration of 90 cc of Optiray, A dose lowering technique was utilized adhering to the principles of ALARA. COMPARISON STUDY: 07/21/2024 FINDINGS: ABDOMEN: Stable tiny cyst anterior right hepatic lobe. Otherwise the liver, gallbladder, spleen, pancreas, and adrenal glands are unremarkable. Kidneys show no hydronephrosis or calculi. No abdominal aortic aneurysm. Pelvis: There are tubal ligation clips. Uterus and adnexa are otherwise grossly unremarkable. Urinary bladder is nondistended. There is mild wall thickening diffusely about the colon. No other bowel inflammation or obstruction seen. Normal appendix. No free fluid, free air, or abscess. No enlarged adenopathy. Osseous structures: There is mild lumbar degenerative disc disease. IMPRESSION: Mild colitis without obstruction or perforation. ACT 112: Negative or not required by law. The above report was generated using voice recognition software. It may contain grammatical, syntax or spelling errors. Electronically signed by: Arvin Tony M.D. 10/15/2024 1:41 PM
--- NOTE | 2024-10-16 21:01 | Hospitalist Progress Note ---
Date of Service October 16, 2024 Assessment & Plan (1) Intractable nausea and vomiting: (2) Colitis: (3) Bradycardia: (4) Hypovolemic shock: (5) Abnormal stool test: (6) Tetrahydrocannabinol (THC) dependence: (7) Nicotine dependence: Plan 49yo female presented on 10/15/24 with intractable nausea/vomiting/abd pain in the setting of undergoing a bowel prep for colonoscopy on 10/15/24. Had evidence of severe dehydration with hypovolemic shock. # Intractable abdominal pain, nausea, and vomiting - -resolved -this occurred in the midst of performing a bowel prep (PEG) for her colonoscopy that was slated on 10/15 as outpatient -no evidence that this was anaphylaxis -no evidence of adrenal insufficiency -no evidence of GI bleeding -could there have been a component of THC hyperemesis syndrome?? (uses THC daily x 1 year) -either way symptoms have resolved, tolerating diet, etc. -allow regular diet today; revert back to clears tomorrow as she will prep for c-scope that is tentatively scheduled for 10/18 -cont PPI -cont anti-emetics as needed -appreciate GI consult -bentyl 10mg prn #hypovolemic shock - -required copious volume resuscitation yesterday - likely 4-5 liters+ of crystalloid -cortisol wnl -H/H stable -BPs today improved -fortunately her renal function remained stable in the midst of this -cause of shock - severe dehydration from prolific vomiting #Marked sinus bradycardia - -TSH wnl -Lyme screen negative -HRs improved today -vagal response to vomiting? -side effect of bentyl? -other? #Current everyday tobacco cigarette smoker - -Nicotine patch daily #THC use - -did daily use of THC lead to "hyperemesis syndrome" which could have worsened her GI symptoms?? #Hematochezia | coffee-ground emesis - -Reported by patient on arrival -Hgb 13.3 at presentation -mild drop in H/H since admission likely due to frequent blood draws & copious IV fluids -cont PPI -check Fe studies, B12, folate am #DVT proph - -patient is ambulating very well -due to ?coffee-ground emesis & blood per rectum defer on chemical means care d/w Dr Cisse via [place] correspondence daughter updated at bedside Admission and Anticipated Discharge Date Admission Date: October 15, 2024 Subjective tele - bradycardia improved; HRs now upper 50s and 60s patient feeling much better today no further nausea/vomiting/abd pain no stools since admission she is hungry - tolerating liquids; wants to try solids wants to remain hospitalized to undergo colonoscopy she is afraid to re-prep at home given the circumstances that led to this admission daughter at bedside patient admits to daily/morning use of THC for at least 1 year prior to 1 year ago she was a casual/occasional THC user has been using THC to help with abdominal symptoms Review of Systems Review of Systems: gen - no fevers or chills CV - no chest pain neuro - no dizziness or lightheadedness pulm - no dyspnea or BEY Physical Exam Physical Exam: gen - looks much better today, NAD, pleasant mouth - MMM, no lesions heart - RRR, s1 s2, no murmur lungs - CTA b/l abd - soft NT ND BS+; no HSM ext - no edema, pulses 2+ b/l skin - no rash psych - a/o x 3 Results & Data Results & Data Vital Signs (Past 12 Hours) Vital Signs Temp Pulse Pulse Resp BP BP Pulse Ox 10/16/24 19:29 37.2 C 61 16 104/65 97 10/16/24 15:10 36.8 C 53 L 18 101/62 99 10/16/24 14:50 72 10/16/24 11:09 36.8 C 48 L 18 101/63 99 O2 Del Method 10/16/24 19:29 Room Air 10/16/24 15:10 Room Air 10/16/24 14:50 10/16/24 11:09 Room Air Laboratory Results Laboratory Results - last 48 hr 10/15/24 10/15/24 10/15/24 11:51 17:43 17:59 WBC 12.52 H RBC 4.50 Hgb 13.3 9.9 L D Hct 39.9 30.4 L MCV 88.7 MCH 29.6 MCHC 33.3 RDW Std Deviation 45.1 RDW Coeff of Karl 14.0 Plt Count 273 MPV 10.1 Immature Gran % (Auto) 0.5 Neut % (Auto) 86.4 Lymph % (Auto) 8.0 Floyd % (Auto) 4.2 Eos % (Auto) 0.4 Baso % (Auto) 0.5 Neut # (Auto) 10.83 H Lymph # (Auto) 1.00 L Floyd # (Auto) 0.52 Eos # (Auto) 0.05 Baso # (Auto) 0.06 Immature Gran # (Auto) 0.06 ESR 31 H Sodium 141 Potassium 3.6 Chloride 103 Carbon Dioxide 23 Anion Gap 15 H BUN 12 Creatinine 0.68 Est Cr Clr Drug Dosing 91.2 eGFR 105.38 BUN/Creatinine Ratio 17.6 Glucose 144 H Lactate Calcium 10.3 Magnesium 1.9 Iron TIBC Transferrin Transferrin % Sat Ferritin Total Bilirubin 0.8 AST 21 ALT 15 Alkaline Phosphatase 55 Troponin I High Sens 2.7 C-Reactive Protein < 0.50 Total Protein 7.2 Albumin 4.5 Globulin 2.7 Albumin/Globulin Ratio 1.7 Lipase 5 L Vitamin B12 Folate TSH Random Cortisol Urine Color Urine Appearance Urine pH Ur Specific Saxon Urine Protein Urine Glucose (UA) Urine Ketones Urine Blood Urine Nitrite Urine Bilirubin Urine Urobilinogen Ur Leukocyte Esterase Urine WBC (Auto) Urine RBC (Auto) U Hyaline Cast (Auto) U Epithel Cells (Auto) Urine Bacteria (Auto) Urine Test Urine Comment Stl C. diff Tox B Gene Stl C. diff [id number] Urine Opiates Screen Ur Methadone, Qual Urine Fentanyl Screen Urine Barbiturates Ur Phencyclidine (PCP) U Amphetamin/Meth Scrn MDMA (Ecstasy) Screen U Benzodiazepines Scrn Ur Cocaine Metabolite U Marijuana (THC) Screen Lyme Disease Screen 10/15/24 10/16/24 10/16/24 22:49 03:25 03:25 WBC 6.88 RBC 3.45 L Hgb 10.2 L 10.5 L Hct 31.7 L MCV MCH MCHC RDW Std Deviation RDW Coeff of Karl Plt Count MPV Immature Gran % (Auto) Neut % (Auto) Lymph % (Auto) Floyd % (Auto) Eos % (Auto) Baso % (Auto) Neut # (Auto) Lymph # (Auto) Floyd # (Auto) Eos # (Auto) Baso # (Auto) Immature Gran # (Auto) ESR Sodium 140 Potassium 3.7 Chloride 108 H Carbon Dioxide 24 Anion Gap 8 BUN 9 Creatinine 0.53 L Est Cr Clr Drug Dosing 119.7 eGFR 111.90 BUN/Creatinine Ratio 17.0 Glucose 128 H Lactate 0.9 Calcium 8.8 Magnesium Iron TIBC Transferrin Transferrin % Sat Ferritin Total Bilirubin AST ALT Alkaline Phosphatase Troponin I High Sens C-Reactive Protein Total Protein Albumin Globulin Albumin/Globulin Ratio Lipase Vitamin B12 Folate TSH Random Cortisol 16.70 Urine Color Urine Appearance Urine pH Ur Specific Saxon Urine Protein Urine Glucose (UA) Urine Ketones Urine Blood Urine Nitrite Urine Bilirubin Urine Urobilinogen Ur Leukocyte Esterase Urine WBC (Auto) Urine RBC (Auto) U Hyaline Cast (Auto) U Epithel Cells (Auto) Urine Bacteria (Auto) Urine Test Urine Comment Stl C. diff Tox B Gene Stl C. diff [id number] Urine Opiates Screen Ur Methadone, Qual Urine Fentanyl Screen Urine Barbiturates Ur Phencyclidine (PCP) U Amphetamin/Meth Scrn MDMA (Ecstasy) Screen U Benzodiazepines Scrn Ur Cocaine Metabolite U Marijuana (THC) Screen Lyme Disease Screen Negative 10/16/24 10/16/24 10/16/24 03:25 07:10 07:16 WBC RBC Hgb Hct 32.3 L MCV 91.9 MCH 29.6 MCHC 32.2 RDW Std Deviation 48.9 H RDW Coeff of Karl 14.5 Plt Count 223 MPV 10.1 Immature Gran % (Auto) 0.3 Neut % (Auto) 78.0 Lymph % (Auto) 16.1 Floyd % (Auto) 5.4 Eos % (Auto) 0.1 Baso % (Auto) 0.1 Neut # (Auto) 5.36 Lymph # (Auto) 1.11 L Floyd # (Auto) 0.37 Eos # (Auto) 0.01 Baso # (Auto) 0.01 Immature Gran # (Auto) 0.02 ESR Sodium 141 Potassium 3.5 Chloride 111 H Carbon Dioxide 22 Anion Gap 8 BUN 8 Creatinine 0.51 L Est Cr Clr Drug Dosing 124.4 eGFR 112.94 BUN/Creatinine Ratio 15.7 Glucose 109 H Lactate 1.0 Calcium 8.4 L Magnesium 1.9 Iron TIBC Transferrin Transferrin % Sat Ferritin Total Bilirubin AST ALT Alkaline Phosphatase Troponin I High Sens C-Reactive Protein < 0.50 Total Protein Albumin Globulin Albumin/Globulin Ratio Lipase Vitamin B12 Folate TSH 0.333 Random Cortisol Urine Color Yellow Urine Appearance Clear Urine pH 5.5 Ur Specific Sax[place] 1.041 H Urine Protein Trace H Urine Glucose (UA) Negative Urine Ketones 2+ H Urine Blood Negative Urine Nitrite Negative Urine Bilirubin Negative Urine Urobilinogen Negative Ur Leukocyte Esterase Negative Urine WBC (Auto) 6-10 H Urine RBC (Auto) 0-2 U Hyaline Cast (Auto) 0-2 U Epithel Cells (Auto) 3-5 H Urine Bacteria (Auto) 1+ H Urine Test Negative Urine Comment Stl C. diff Tox B Gene Stl C. diff [id number] Urine Opiates Screen Neg Ur Methadone, Qual Neg Urine Fentanyl Screen Neg Urine Barbiturates Neg Ur Phencyclidine (PCP) Neg U Amphetamin/Meth Scrn Neg MDMA (Ecstasy) Screen Neg U Benzodiazepines Scrn Neg Ur Cocaine Metabolite Neg U Marijuana (THC) Screen Pos H Lyme Disease Screen PG Care Time/CCT Total # of Minutes Spent Total Time Spent with Patient: Total time spent is greater than 50% in coordination of care (as documented) at patient's floor/unit and/or counseling patient: Coding Level of Care Code 00331 SUB INP/OBS CARE 3/50MIN Diagnoses Intractable nausea and vomiting R11.2 Colitis K52.9 Bradycardia R00.1 Hypovolemic shock R57.1 Abnormal stool test R19.5 Tetrahydrocannabinol (THC) dependence F12.20 Nicotine dependence F17.200
[2024-10-17 07:52] LABS: BUN Creatinine Ratio 12.9 (10-20); Calcium 9.4 mg/dl (8.6-10.3); Creatinine Clr Calc Pharmacy 93.2 ml/min; Potassium 3.8 mmol/L (3.5-5.1)
[2024-10-17 08:10] VITALS: O2SAT 99
[2024-10-17 08:11] LABS: Ferritin 40.7 ng/ml (8-388)
[2024-10-17 08:17] LABS: Folate (Folic Acid),Ser orPlas 10.45 ng/ml (>5.38)
--- NOTE | 2024-10-17 09:10 | Electrocardiogram Report ---
Test Reason : Blood Pressure : */* mmHG Vent. Rate : 44 BPM Atrial Rate : 44 BPM P-R Int : 134 ms QRS Dur : 96 ms QT Int : 538 ms P-R-T Axes : -3 26 52 degrees QTcB Int : 459 ms Marked sinus bradycardia Abnormal ECG No previous ECGs available Confirmed by Alysia Hernandez (Francisco Javier) on 10/17/2024 9:09:55 AM Referred By: REFERRED SELF Confirmed By: Alysia Hernandez
[2024-10-17 12:27] VITALS: BP 115/76; PULSE 52; RESP 18; TEMP 98.1
--- NOTE | 2024-10-17 14:47 | Discharge Summary ---
Discharge Summary Date of Service date of admission - October 15, 2024 date of discharge - October 17, 2024 Principal Dx & Hospital Course #1 = Principal Diagnosis (1) Intractable nausea and vomiting: (2) Hypovolemic shock: (3) Colitis: (4) Bradycardia: (5) Tetrahydrocannabinol (THC) dependence: (6) Nicotine dependence: (7) Abnormal stool test: elevated stool calprotectin concern for underlying IBD - see below Plan 49yo female presented on 10/15/24 with intractable nausea/vomiting/abdominal pain in the setting of undergoing a bowel prep for scheduled outpatient colonoscopy on 10/15/24. She tolerated the first portion of the prep on 10/14/24, but when she resumed the 2nd portion of the prep on the AM of 10/15/24 she developed the severe nausea/vomiting. She had evidence of severe dehydration with hypovolemic shock at time of presentation to [facility]. # Intractable abdominal pain, nausea, and vomiting - -no evidence that this was anaphylaxis due to the PEG solution -no evidence of adrenal insufficiency (cortisol 16.7) -no evidence of acute GI bleeding -could a component of THC hyperemesis syndrome have been present?? (has used THC daily x 1 year) -CT abd/pelvis at presentation did NOT show an obstructive process or ileus -however, there was mild colitis seen on CT -symptoms were treated with PPI, anti-emetics, anti-spasmodics, etc. -nausea/vomiting finally resolved later in the day on 10/15/24, and clear liquid diet was resumed -diet was subsequently advanced and she was tolerating regular food prior to discharge home -GI was consulted and offered to perform EGD/colonoscopy while hospitalized; the colonoscopy was originally planned due to concerns for IBD -however, because of the Holiday, the patient would have waited 48+ hours to have her endoscopies -thus, patient elected to return home and reschedule EGD/colonoscopy in the near-future as an outpatient -of note - she may need a supervised prep the day before her endoscopies given the severity of her GI symptoms from the PEG prep -this could potentially be accomplished by arranging a scheduled admission sometime in the future -will need to coordinate such with [facility] -she was given prescriptions for PPI, zofran ODTs, and bentyl 10mg prn at discharge -she was counseled that there could have been a component of THC hyperemesis syndrome contributing to her symptoms -she reports having episodes of abd pain, stomach upset, and nausea/vomiting but to a lesser degree at home -recommended to reduce or stop THC use, if possible #concerns for inflammatory bowel disease - -patient has had persistent GI symptoms - mainly lower - for a prolonged period of time (1-2 years) -serial CT scans have continued to show bowel inflammation - typically colon, but small bowel was involved on one CT as well -recent stool Calprotectin was elevated at >1000 -again will need her EGD/colonoscopy rescheduled for the near-future #hypovolemic shock - -shortly after presentation to the ER she had systolic BPs in the 70s -cause of shock - severe dehydration from prolific vomiting -required copious volume resuscitation on hospital day #1 - likely 4-5 liters+ of crystalloid - to improve her BPs -cortisol level was wnl -H/H were stable and there was no evidence of GI bleeding while here -fortunately her renal function remained stable in the midst of her hypotension -BPs on day of discharge were 100-115 systolic #Marked sinus bradycardia - -TSH wnl -Lyme screen negative -HRs improved on hospital day #2 -vagal response to vomiting? -side effect of bentyl? -other? #Current everyday tobacco cigarette smoker #THC use - -did daily use of THC lead to "hyperemesis syndrome" which could have worsened her GI symptoms?? -counseled to reduce her THC use or stop entirely if possible #Hematochezia | coffee-ground emesis - -Reported by patient on arrival -Hgb 13.3 at presentation -did have a mild drop in H/H while here likely due to frequent blood draws & copious IV fluids but she had no further coffee-ground emesis or hematochezia -cont PPI -checked Fe studies - -ferritin was 40 -transferrin sat was 8% -recommended she speak with her PCP about the potential for IV iron supplementat ion #iron deficiency - -consider outpatient IV iron infusions -I don't think she will tolerate oral iron supplementation #low-normal vitamin B12 level - -level - 280 -recommended vitamin B12 supplementation 1000mcg daily for 4-6 months -folate level was wnl Notes For Next Care Provider Needs EGD/colonoscopy rescheduled in the near-future. She may need an observation hospital stay in order to undergo a supervised bowel prep given the severity of her nausea/vomiting/abdominal pain with the recent bowel prep. Medication Changes From Visit 1. protonix 40mg daily 2. vitamin B12 OTC - 1000mcg daily 3. pepcid OTC 20mg prn 4. zofran 4mg ODT q6h prn 5. dicyclomine 10mg q8h prn Admission HPI Per Admitting Provider Mrs. Crews is a 49-year-old female with PMH of enteritis. She presented via EMS on 10/15 for intractable nausea, vomiting, and upper abdominal pain. She has been experiencing ongoing bowel issues over the past 2 years. She recently had a fecal calprotectin test taken outpatient on 09/20, which came back positive. She was scheduled to have a colonoscopy today, and was finishing her bowel prep around 5 AM this morning, when she started vomiting. She believes the bowel prep exacerbated her pain, and since that time she has had a constant upper abdominal pain. She rates the pain 10/10 at worst, and 8/10 at present; characterizes it as "sharp". She has had an back pain in the past, but no radiation to the back at present. The pain is constant, but there are waves of intense pain as well. Additionally, she has been having "coffee ground" emesis. Additional symptoms include blood in her stool and cold sweats. No prior history of Crohn's or ulcerative colitis to her knowledge. Patient is a current everyday tobacco cigarette smoker; 10 cigarettes/day. She would like a nicotine patch while in the hospital. She denies any recent alcohol use, but does endorse drinking some beer last weekend. NKDA. Patient is hypotensive at 105/55 and bradycardic at 45 bpm at time of admission. ED course: Protonix 40 mg IV Famotidine 20 mg IV Bentyl 20 mg IM Acetaminophen 1000 mg IV Sucralfate 1 g p.o. Solu-Medrol 60 mg IV NSS 1000 mL IV x 2 Zofran 4 mg IV ROS: Patient endorses intractable epigastric/chest pain, body aches, back pain, nausea, vomiting, constipation, blood in stool, and cold sweats. Patient denies fever, chills, SOB, BEY, pleuritic CP, cough, or change in urinary habits. Discharge Exam gen - looks well, NAD, pleasant mouth - MMM, no lesions heart - RRR, s1 s2, no murmur lungs - CTA b/l abd - soft NT ND BS+; no HSM ext - no edema, pulses 2+ b/l skin - no rash psych - a/o x 3 Discharge Plan Discharge Items Patient Disposition: Home - Self-Care Reason For Visit: INTRACTABLE NAUSEA, VOMITING, ABDOMINAL PAIN Discharge Diagnosis: 1. severe, intractable nausea/vomiting/abdominal pain - resolved; due to colonoscopy prep +/- other causes? 2. concern for inflammatory bowel disease - outpatient EGD (upper endoscopy)/colonoscopy is needed 3. borderline low vitamin B12 level 4. iron deficiency Condition on Discharge: Good Activity: Resume your previous activity Non-emergency contact: Primary Care Provider and Roller [employer] Call non-emergency contact if: you have any medication questions, your symptoms worsen, your pain is not controlled, your pain is worsening and you have a fever Follow-up/Referrals: Leslee Vazquez MD [Primary Care Provider] - 10/21/24 10:30 am (Scheduled with [facility]) Neha Ivey CRNP [Nurse Practitioner] - 10/25/24 (if possible please keep this appointment with gastroenterology as they can assist you in getting the EGD/colonoscopy rescheduled) Diet: Regular Addtl Attending Provider Instructions: Ms Crews, Josemanuel were hospitalized due to severe nausea, vomiting, and abdominal pain while taking a prep for colonoscopy. This led to severe dehydration and low blood pressure. Your symptoms improved with copious amounts of IV fluid, nausea medicines, and other treatments for your stomach. Your CT scan of the abdomen did NOT show a blockage of the bowels. We did not find any infections. There were plans to do upper endoscopy (EGD) and colonoscopy; however the holiday weekend has made scheduling difficult. You are tolerating a regular diet and your vital signs & labs have all returned to normal. We did find that you are borderline low on your vitamin B12 level and your iron levels are low. Recommendations - 1. take pantoprazole 40mg once daily for acid reduction/stomach. 2. may take tpzb-drh-zbxhakl pepcid (famotidine) 20mg up to twice daily as needed for acid reduction/heartburn/stomach discomfort. 3. may take dicyclomine 10mg every 8 hours as needed for abdominal discomfort/cramps/spasm. Common side effects - dry mouth, dry eyes. 4. may take ondansetron tablets for nausea/vomiting - 4mg every 6 hours as needed. 5. take qytc-kkv-hjhdvai vitamin B12 1000mcg (1mg) daily for about 4-6 months; have your family doctor recheck the level later this summer. 6. you have low iron. Please talk to your family doctor about iron supplementation (either oral or IV). 7. please keep your appointment with gastroenterology on October 25. They can coordinate the timing of your EGD/colonoscopy at that visit. 8. as we discussed cannabis use on a regular basis can lead to "cannabis hyperemesis syndrome" (see handout). This can lead to severe attacks of nausea/vomiting/abdominal pain. It is possible that this contributed to some of your presenting symptoms. If possible please try to discontinue cannabis use. Return to [facility] if - -you have uncontrollable abdominal pain -you have uncontrollable vomiting -you feel dehydrated due to the above -you feel dizzy or lightheaded -any other concerns It was our pleasure to care for you! -Dr Soares Pending Studies at Discharge: No Stand-Alone Forms: [facility], Smoking Cessation Medications and DC Order Prescriptions: New dicyclomine 10 mg Capsule 10 mg PO Q8H PRN (Reason: stomach cramps/spasm/pain) Qty: 20 0RF pantoprazole [Protonix] 40 mg tablet,delayed release (DR/EC) 40 mg PO QAM Qty: 30 2RF cyanocobalamin (vitamin B-12) 1,000 mcg tablet 1,000 mcg PO DAILY Qty: 90 1RF Rx Instructions: purchase [id number] famotidine [Pepcid] 20 mg tablet 20 mg PO BID PRN (Reason: heartburn/stomach upset) Qty: 30 0RF Rx Instructions: purchase over the counter ondansetron 4 mg tablet,disintegrating 4 mg PO Q6H PRN (Reason: nausea and vomiting) Qty: 10 0RF Continued multivitamin Tablet 1 tab PO DAILY Rx Instructions: otc unable to verify magnesium glycinate 100 mg Tablet 200 mg PO HS Rx Instructions: otc unable to verify Vitamin D3 + K2 1 cap PO DAILY Rx Instructions: otc unable to verify nicotine 14 mg/24 hr Patch 24 Hour 1 patch TRANSDERMAL DAILY Rx Instructions: otc unable to verify Discontinued Suflave 178.7-7.3-0.5 gram recon soln See Rx Instructions PO .COMPLEX Qty: 2 0RF Rx Instructions: filled 10/09/24 orally; TAKE FIRST DOSE AT 6 PM AND SECOND DOSE 6 HOURS PRIOR TO PROCEDURE BIN: [id number] N: 2000 GROUP: [id number] Discharge Orders: Discharge Order (Routine); Ordered 10/17/24 Ordered By: Eran Obando/Other Patient Handouts: Cannabis Hyperemesis Syndrome Admission Data Admit Date/Time: 10/15/24 17:20 Attending Provider: Eran Soares Admit Provider: Eran Soares Primary Care Provider: Leslee Vazquez Other Providers: Claudine Cisse Jr Other Interventions: Discharge Summary Assessment (RN) Last Done: 10/17/24 14:39 Hospital Stay Data Consultations Gastroenterology Diagnostic Imagining Performed Abdomen/Pelvis CT 10/15/24 13:[address] WITH IV CONTRAST CT DOSE: 770.8 mGy.cm HISTORY: abd pain after bowel prep, ?IBD TECHNIQUE: Multiaxial CT images of the abdomen and pelvis were performed following the IV administration of 90 cc of Optiray, A dose lowering technique was utilized adhering to the principles of ALARA. COMPARISON STUDY: 07/21/2024 FINDINGS: ABDOMEN: Stable tiny cyst anterior right hepatic lobe. Otherwise the liver, gallbladder, spleen, pancreas, and adrenal glands are unremarkable. Kidneys show no hydronephrosis or calculi. No abdominal aortic aneurysm. Pelvis: There are tubal ligation clips. Uterus and adnexa are otherwise grossly unremarkable. Urinary bladder is nondistended. There is mild wall thickening diffusely about the colon. No other bowel inflammation or obstruction seen. Normal appendix. No free fluid, free air, or abscess. No enlarged adenopathy. Osseous structures: There is mild lumbar degenerative disc disease. IMPRESSION: Mild colitis without obstruction or perforation. ACT 112: Negative or not required by law. The above report was generated using voice recognition software. It may contain grammatical, syntax or spelling errors. Electronically signed by: Arvin Tony M.D. 10/15/2024 1:41 PM Pending Results Patient Have Any Pending Studies at Discharge: No Discharge Instructions Given to Patient (Per Discharging Provider) Ms Crews, Josemanuel were hospitalized due to severe nausea, vomiting, and abdominal pain while taking a prep for colonoscopy. This led to severe dehydration and low blood pressure. Your symptoms improved with copious amounts of IV fluid, nausea medicines, and other treatments for your stomach. Your CT scan of the abdomen did NOT show a blockage of the bowels. We did not find any infections. There were plans to do upper endoscopy (EGD) and colonoscopy; however the holiday weekend has made scheduling difficult. You are tolerating a regular diet and your vital signs & labs have all returned to normal. We did find that you are borderline low on your vitamin B12 level and your iron levels are low. Recommendations - 1. take pantoprazole 40mg once daily for acid reduction/stomach. 2. may take pkpy-bik-iqkzkri pepcid (famotidine) 20mg up to twice daily as needed for acid reduction/heartburn/stomach discomfort. 3. may take dicyclomine 10mg every 8 hours as needed for abdominal discomfort/cramps/spasm. Common side effects - dry mouth, dry eyes. 4. may take ondansetron tablets for nausea/vomiting - 4mg every 6 hours as needed. 5. take khdy-fqt-zrsopsr vitamin B12 1000mcg (1mg) daily for about 4-6 months; have your family doctor recheck the level later this summer. 6. you have low iron. Please talk to your family doctor about iron supplementation (either oral or IV). 7. please keep your appointment with gastroenterology on October 25. They can coordinate the timing of your EGD/colonoscopy at that visit. 8. as we discussed cannabis use on a regular basis can lead to "cannabis hyperemesis syndrome" (see handout). This can lead to severe attacks of nausea/vomiting/abdominal pain. It is possible that this contributed to some of your presenting symptoms. If possible please try to discontinue cannabis use. Return to [facility] if - -you have uncontrollable abdominal pain -you have uncontrollable vomiting -you feel dehydrated due to the above -you feel dizzy or lightheaded -any other concerns It was our pleasure to care for you! -Dr Soares Total Time Total Time Spent Total Time Spent (In Minutes): 40 Coding Level of Care Code 85595 INP/OBS DISCH >30 MIN Diagnoses Intractable nausea and vomiting R11.2 Hypovolemic shock R57.1 Colitis K52.9 Bradycardia R00.1 Tetrahydrocannabinol (THC) dependence F12.20 Nicotine dependence F17.200 Abnormal stool test R19.5
[2024-10-18 11:03] LABS: Marijuana Quant, GCMS Urine 1380 ng/mL (<5)
== END 2024-10-17 16:04 | disposition home or self-care (01) ==
LOC: ED 11:36 → 2W 17:20